=== PATIENT | female | born 1985 | race African-American/Black ===

== ENCOUNTER 2017-10-12 13:51 | Emergency (ER) | payer SELFPAY, OTHER ==
[2017-10-12 14:21] LABS: URINE HCG POC HCG NEGATIVE (Negative)
[2017-10-12 14:44] LABS: BILIRUBIN,URINE NEGATIVE (NEG); CLARITY,URINE CLEAR; COLOR,URINE YELLOW; GLUCOSE,URINE NEGATIVE (NEG); NITRITE,URINE NEGATIVE (NEG); PH,URINE 7.5; PROTEIN,URINE 30 mg/dL (NEG-TRACE)
[2017-10-12 14:51] LABS: BASO % 0 % (0-3); EOS % 0 % (0-3); HEMATOCRIT 37.4 % (36.0-47.0); HEMOGLOBIN 12.9 g/dL (12.0-15.5); LYMPH # 0.5 x10^3/uL (1.0-4.8); LYMPH % 7 % (24-48); MEAN CORPUSCULAR HEMOGLOBIN 32 pg (25-35); MEAN CORPUSCULAR HGB CONC 34 g/dL (31-37); MEAN CORPUSCULAR VOLUME 93 fL (79-100); MONO # 0.2 x10^3/uL (0.0-1.1); MONO % 2 % (0-9); NEUT # 6.5 x10^3uL (1.8-7.7); NEUT % 91 % (31-73); PLATELET COUNT 160 x10^3/uL (140-400); RED BLOOD COUNT 4.03 x10^6/uL (3.50-5.40); RED CELL DISTRIBUTION WIDTH 12.6 % (11.5-14.5); WHITE BLOOD COUNT 7.2 x10^3/uL (4.0-11.0)
[2017-10-12 14:53] LABS: ADD MAN DIFF? YES
[2017-10-12] MEDS: ONDANSETRON PF 4 MG/2 ML VIAL. IV ×2 (14:57→16:56)
[2017-10-12] MEDS: KETOROLAC 30 MG/ML INJ. IV (14:57)
[2017-10-12] MEDS: MORPHINE SULFATE 10 MG/ML VIAL. IV (14:58)
[2017-10-12 15:01] LABS: ANION GAP 10 (6-14); BLOOD UREA NITROGEN 12 mg/dL (7-20); BUN/CREATININE RATIO 10 (6-20); CALCIUM 9.5 mg/dL (8.5-10.1); CARBON DIOXIDE 24 mmol/L (21-32); CHLORIDE 103 mmol/L (98-107); CREATININE 1.2 mg/dL (0.6-1.0); GFR 62.6; GLUCOSE 104 mg/dL (70-99); POTASSIUM 3.8 mmol/L (3.5-5.1); SODIUM 137 mmol/L (136-145)
[2017-10-12 15:08] LABS: ALBUMIN 3.9 g/dL (3.4-5.0); ALBUMIN/GLOBULIN RATIO 0.8 (1.0-1.7); ALK PHOS 75 U/L (46-116); ALT (SGPT) 70 U/L (14-59); AST (SGOT) 119 U/L (15-37); TOTAL BILIRUBIN 0.7 mg/dL (0.2-1.0); TOTAL PROTEIN 8.5 g/dL (6.4-8.2)
[2017-10-12 15:11] LABS: BACTERIA,URINE FEW /HPF (0-FEW); SQUAMOUS EPITHELIAL CELL,UR MOD /LPF
[2017-10-12 16:11] LABS: % BANDS 4 % (0-9); % LYMPHS 8 % (24-48); % MONOS 1 % (0-10); % SEGS 87 % (35-66)
[2017-10-12 16:12] LABS: PLT ESTIMATE ADEQUATE (ADEQUATE)
[2017-10-12] MEDS: CIPROFLOXACIN 400MG PREMIX 200 ML IV (16:35)
[2017-10-12] MEDS: ACETAMINOPHEN 500 MG TABLET PO (16:57)
== END 2017-10-12 17:50 | disposition home or self-care (01) ==
LOC: ER 13:51
DX: N12 Tubulo-interstitial nephritis, not specified as acute or chronic (principal); Z88.1 Allergy status to other antibiotic agents
CPT/HCPCS: 36415; 74176; 80053; 81001; 81025; 85007; 85025; 87086; 96365; 96375; 96376; 99285-25; J0744; J1885; J2270; J2405